=== PATIENT | male | born 1945 | race Caucasian/White ===

== ENCOUNTER 2016-06-22 17:35 | Emergency (ER) | payer MEDICARE, OTHER ==
[~2016-06-22 17:35] MED LIST: ALTACE DPS10 MG PO; ASPIR-LOW81 MG PO; BUPROPION XL150 MG PO; CIPRO DPS500 MG PO; CRESTOR10 MG PO; DESYREL-DPS50 MG PO; FISH OIL 1,2001 EACH PO; FLOMAX DPS0.4 MG PO; LEVAQUIN DPS500 MG PO; LORTAB 5-325 M1 EACH PO; NIFEDICAL XL30 MG PO; PEPCID DPS20 MG PO; PLAVIX75 MG PO; PROAIR HFA8.5 GM IH; PROTONIX20 MG PO; REMERON DPS15 MG PO; TENORMIN DPS50 MG PO; XARELTO20 MG PO
--- NOTE | 2016-06-23 19:08 | ER ---
ADMIT: 06/22/2016 RM/LOC: ER [facility] MR#: [id number] [address] WILFRED JACKSON [address] [place] [address] Emergency Room Report SEX: M AGE: 70 : 1945 DATE: 06/22/2016 The patient has been signed out to me. Please follow with the main adjunct business instructor for the complete history and physical examination. The patient is a 70-year- old male with a past medical history of coronary artery disease, status post stent; bilateral popliteal femoral bypass on April; and history of urosepsis in April, came to the ER because of feeling poor and feeling a little lightheaded and dizzy today. EKG was AFib with low heart rate. The patient has stable vitals. The patient was afebrile. The patient was not in obvious distress. No chest pain. No shortness of breath. No abdominal pain. Lungs were clear. The patient had no murmurs. Abdomen was soft. The patient was signed out to follow up on the lab works, sepsis workup, and dispo accordingly. The patient was already started on half liter of normal saline. The patient had lactic level of 2.4 with WBC of 12, one left shift. The patient was afebrile in the ER. The patient denied any recent viral infection, but states he was not drinking and eating well today. The patient received another half liter of fluid and lactic was 2.5. Urine was negative for infection. Chest x-ray was normal. The rest of the lab work was noncontributory. The patient was negative for troponin I. I examined the patient multiple times, the last time as before the patient states he feels okay after the IV fluid and there is no concern and the fatigue and feeling poor are mostly resolved at the moment. Lungs were clear. Abdomen was soft. I checked all the wounds following the bypass surgery, there were 4 wounds in the left leg; 2 in the left flank and left lower thigh and 1 in the proximal thigh and 1 in the left inguinal area. In the left inguinal area, it was slight dry, maybe a drop of clean discharge which was already dry, but none of the wounds had fluctuations, erythema, induration. I also checked the wound for any discharge or new discharge, which there were no new discharges over the area. The patient was discussed also with Dr. Henderson, who has seen the patient for urosepsis in April. At this moment, we could not find any emergent or urgent condition and any stressful condition, dehydration could cause these lab works. The patient feels good and is nontoxic at all. The patient has stable vitals. The patient was advised to follow up with Dr. Zavala and the [facility] as required and also follow up with Dr. Zavala tomorrow morning. The patient was advised to come to the ER if there are any new symptoms or concerns. He acknowledged he understood the plan and he agreed with it. The patient was discharged to home. Erendira James MD/ carlos JOB #: [id number] CC: Marcellus Patton MD, Attending Physician Luis Zvaala MD, Family Physician
[2016-12-20] MEDS ORDERED: NEURONTIN DPS300 MG PO (19:17)
[2016-12-20] MEDS ORDERED: FLOMAX DPS0.4 MG PO (19:18)
[2016-12-20] MEDS ORDERED: WELLBUTRIN SR150 M1 PO (19:18)
[2016-12-20] MEDS ORDERED: PEPCID DPS20 MG PO (19:18)
[2016-12-20] MEDS ORDERED: BETAPACE DPS80 MG PO (19:18)
[2016-12-20] MEDS ORDERED: DELTASONE DPS20 MG PO (19:18)
[2016-12-20] MEDS ORDERED: PLAVIX75 MG PO (19:19)
[2016-12-20] MEDS ORDERED: PROCARDIA XL30 MG PO (19:19)
[2016-12-20] MEDS ORDERED: CRESTOR10 MG PO (19:19)
[2016-12-20] MEDS ORDERED: XARELTO20 MG PO (19:19)
[2016-12-20] MEDS ORDERED: CYANOCOBAL1000 MCG/1 IM (19:21)
[2016-12-20] MEDS ORDERED: PROAIR HFA8.5 GM IH (19:22)
[2016-12-20] MEDS ORDERED: VIBRAMYCIN-DPS100 M2 PO (19:22)
[2016-12-29] MEDS ORDERED: DUONEB DPS3 ML IH (13:13)
[2016-12-29] MEDS ORDERED: LEVAQUIN DPS500 MG PO (13:14)
== END 2016-06-22 22:45 | disposition home or self-care (01) ==
LOC: ER 17:35
DX: E86.0 Dehydration (principal); R42 Dizziness and giddiness; I10 Essential (primary) hypertension; Z87.891 Personal history of nicotine dependence; Z79.01 Long term (current) use of anticoagulants; Z79.82 Long term (current) use of aspirin; Z79.899 Other long term (current) drug therapy

== ENCOUNTER 2016-09-22 12:33 | Day surgery (SDC) | payer MEDICARE ==
[~2016-09-22] VITALS: Ht 188 cm; Wt 83.1 kg
--- NOTE | 2016-10-08 14:31 | CVR ---
ADMIT: 09/22/2016 RM/LOC: [facility] MR#: [id number] [address] WILFRED JACKSON [facility] [place] [address] Cardioversion Report SEX: M AGE: 70 : 1945 DATE: 09/22/2016 INDICATION: Atrial flutter. DESCRIPTION OF PROCEDURE: Following informed concurrent with assistance of anesthesia following adequate sedation, a 30 joule shock of biphasic energy was delivered with the pads in the anterior-posterior position. No complications noted. Patient went into sinus rhythm. Audi Joshua MD/ liat JOB #: [id number] CC: Moiz Joshua, Attending Physician Luis Zavala, Family Physician
[2016-12-20] MEDS ORDERED: NEURONTIN DPS300 MG PO (19:17)
[2016-12-20] MEDS ORDERED: DELTASONE DPS20 MG PO (19:18)
[2016-12-20] MEDS ORDERED: PEPCID DPS20 MG PO (19:18)
[2016-12-20] MEDS ORDERED: FLOMAX DPS0.4 MG PO (19:18)
[2016-12-20] MEDS ORDERED: WELLBUTRIN SR150 M1 PO (19:18)
[2016-12-20] MEDS ORDERED: BETAPACE DPS80 MG PO (19:18)
[2016-12-20] MEDS ORDERED: XARELTO20 MG PO (19:19)
[2016-12-20] MEDS ORDERED: PROCARDIA XL30 MG PO (19:19)
[2016-12-20] MEDS ORDERED: CRESTOR10 MG PO (19:19)
[2016-12-20] MEDS ORDERED: PLAVIX75 MG PO (19:19)
[2016-12-20] MEDS ORDERED: CYANOCOBAL1000 MCG/1 IM (19:21)
[2016-12-20] MEDS ORDERED: VIBRAMYCIN-DPS100 M2 PO (19:22)
[2016-12-20] MEDS ORDERED: PROAIR HFA8.5 GM IH (19:22)
[2016-12-29] MEDS ORDERED: DUONEB DPS3 ML IH (13:13)
[2016-12-29] MEDS ORDERED: LEVAQUIN DPS500 MG PO (13:14)
== END 2016-09-22 14:54 | disposition home or self-care (01) ==
LOC: SSS 12:33
PROC: 5A2204Z Restoration of Cardiac Rhythm, Single (ICD-10-PCS; principal; 2016-09-22)
DX: I48.92 Unspecified atrial flutter (principal); I48.1 Persistent atrial fibrillation; E78.5 Hyperlipidemia, unspecified; I73.9 Peripheral vascular disease, unspecified; I25.10 Atherosclerotic heart disease of native coronary artery without angina pectoris; I10 Essential (primary) hypertension; I73.00 Raynaud's syndrome without gangrene; Z87.891 Personal history of nicotine dependence; Z79.899 Other long term (current) drug therapy; Z98.890 Other specified postprocedural states